=== PATIENT | female | born 1955 | race Caucasian/White ===

== ENCOUNTER 2017-12-21 09:43 | Outpatient (CLI) | payer BC | END 2017-12-21 21:35 | disposition home or self-care (01) | LOC: SMA 09:43 | PROVIDERS: ATTEND Physician Assistant Medical | DX: Z12.31 Encounter for screening mammogram for malignant neoplasm of breast (principal) | CPT/HCPCS: 77067 ==

== ENCOUNTER 2018-11-05 20:10 | Emergency (ER) | payer BC ==
[~2018-11-05] VITALS: Ht 167.6 cm; Wt 77.6 kg
[2018-11-05 20:55] VITALS: BP_SYST 159
--- NOTE | 2018-11-05 21:59 | NUR ---
Patient to ER H1 to gown for evaluation. Side rails up.
--- NOTE | 2018-11-05 22:00 | NUR ---
ER Dr. Peterson at bedside examining patient.
--- NOTE | 2018-11-05 22:00 | NUR ---
Pt complains of sore throat for the past 4 days. Per pt she has minor cough which was minimally improved after taking Robitussin. Pt states around 6pm today she felt "arms and head hot." Pt denies N/V, fever, chest pain, shortness of breath. No other injuries/complaints per patient or noted.
--- NOTE | 2018-11-05 22:06 | NUR ---
Note samantha in ED - 11/05/18 at 2217 by [email or web address] Patient to [facility] for evaluation. Side rails up.
[2018-11-05] MEDS ORDERED: AMOXICILLIN 500 MG CAPSULE PO ONE (22:15)
--- NOTE | 2018-11-05 22:16 | NUR ---
Medication was given, pt tolerated well. No adverse reaction, will continue to monitor.
[2018-11-05 22:30] VITALS: BP_SYST 146
--- NOTE | 2018-11-05 22:30 | NUR ---
Patient given written and verbal discharge instructions and verbalizes understanding. ER MD discussed with patient the results and treatment provided. Patient in stable condition. ID arm band removed. Rx of Amoxicillin given. Patient educated on pain management and to follow up with PMD. Pain Scale 0. Opportunity for questions provided and answered. Medication side effect fact sheet provided.
== END 2018-11-05 22:30 | disposition home or self-care (01) ==
LOC: SED 20:10
DX: J02.9 Acute pharyngitis, unspecified (principal); R03.0 Elevated blood-pressure reading, without diagnosis of hypertension
CPT/HCPCS: 99283

== ENCOUNTER 2021-09-21 08:49 | Outpatient (CLI) | payer BC | END 2021-09-21 19:10 | disposition home or self-care (01) | LOC: SMA 08:49 | PROVIDERS: ATTEND Family Medicine | DX: Z12.31 Encounter for screening mammogram for malignant neoplasm of breast (principal) | CPT/HCPCS: 77067 ==

== ENCOUNTER 2022-12-22 09:00 | Outpatient (CLI) | payer BC | END 2022-12-22 19:43 | disposition home or self-care (01) | LOC: SMA 09:00 | PROVIDERS: ATTEND Physician Assistant Medical | DX: Z12.31 Encounter for screening mammogram for malignant neoplasm of breast (principal) | CPT/HCPCS: 77067 ==

== ENCOUNTER 2023-02-02 08:37 | Outpatient (CLI) | payer BC | END 2023-02-02 18:24 | disposition home or self-care (01) | LOC: SMA 08:37 | PROVIDERS: ATTEND Physician Assistant Medical | DX: R92.333 Mammographic heterogeneous density, bilateral breasts (principal); R92.2 Inconclusive mammogram | CPT/HCPCS: 76642; 77065 ==